=== PATIENT | female | born 1955 | race Caucasian/White ===

== ENCOUNTER → 2017-03-09 | Outpatient (CLI) | payer OTHER ==
[2017-03-09 15:41] LABS: CHLORIDE,CL 110 mmol/L (98-110); SODIUM,NA 144 mmol/L (136-146)
== END ==
LOC: MW.CHFP 14:42
PROVIDERS: ATTEND Physician Assistant
DX: R10.31 Right lower quadrant pain (principal); R10.32 Left lower quadrant pain
CPT/HCPCS: 36415; 80053; 85025; 85652; 86677

== ENCOUNTER 2017-04-02 09:37 | Day surgery (SDC) | payer OTHER ==
[~2017-04-02 09:37] MED LIST: Lactated Ringers 1,000 ML IV SCH; Sodium Chloride 0.9% 10 ML Syringe FLUSH PRN; Sodium Chloride 0.9% 2.5 ML Syringe FLUSH PRN
--- NOTE | 2017-04-02 10:12 | PCM.PREANE ---
Preanesthetic Assessment - Anesthesia/Transfusion/Family Hx Anesthesia History: Prior Anesthesia Without Reaction Family History of Anesthesia Reaction: No Transfusion History: No Prior Transfusion(s) Intubation History: Unknown - Review of Systems General: No Symptoms Pulmonary: No Symptoms Cardiovascular: No Symptoms Gastrointestinal: Abdominal pain Neurological: No Symptoms Other: Reports: None - Physical Assessment Height: 1.63 m Weight: 60.781 kg ASA Class: 3 Mental Status: Alert & Oriented x3 Airway Class: Mallampati = 2 Dentition: Reports: Normal Dentition Thyro-Mental Finger Breadths: 3 Mouth Opening Finger Breadths: 2 ROM/Head Extension: Limited/Partial Lungs: Normal respiratory effort, Crackles Cardiovascular: Regular Rate - Allergies Allergies/Adverse Reactions: Allergies Allergy/AdvReac Type Severity Reaction Status Date / Time No Known Allergies Allergy Verified 10/10/15 10:29 - Blood Blood Available: No - Anesthesia Plan Pre-Op Medication Ordered: None - Acknowledgements Anesthesia Type Planned: MAC Pt an Appropriate Candidate for the Planned Anesthesia: Yes Alternatives and Risks of Anesthesia Discussed w Pt/Guardian: Yes Pt/Guardian Understands and Agrees with Anesthesia Plan: Yes PreAnesthesia Questionnaire HEENT History: Reports: Other (See Below) Other HEENT History: wears glasses Respiratory History: Reports: Other (See Below) (lung nodule discovered 2 weeks ago) Genitourinary History: Reports: None Musculoskeletal History: Reports: Arthritis, Back Pain, Chronic, Fracture, Osteoporosis Other Musculoskeletal History: hx fx ankle and wrist - Past Surgical History Head Surgeries/Procedures: Reports: None GI Surgical History: Reports: Colonoscopy Female Surgical History: Reports: Hysterectomy Musculoskeletal Surgical History: Reports: Shoulder Surgery (rt. shoulder rotator cuff repair) - SUBSTANCE USE Smoking Status *Q: Current Every Day Smoker (1 ppd) Tobacco Use Within Last Twelve Months: Cigarettes Recreational Drug Use History: No - HOME MEDS Home Medications: Home Meds Aspirin [[place] Aspirin] 81 mg PO DAILY 03/30/17 [History] - CURRENT (IN HOUSE) MEDS Current Meds: Current Medications Lactated Ringer's (Ringers, Lactated) 1,000 mls @ 125 mls/hr IV ASDIRECTED POLLY Last Admin: 04/02/17 09:55 Dose: 125 mls/hr Sodium Chloride (Saline Flush) 10 ml FLUSH ASDIRECTED PRN PRN Reason: Keep Vein Open Sodium Chloride (Saline Flush) 2.5 ml FLUSH ASDIRECTED PRN PRN Reason: Keep Vein Open
[2017-04-02] MEDS ORDERED: Propofol 200 MG/20 ML SDV ONE (10:22)
[2017-04-02] MEDS ORDERED: Lidocaine 2% 5 ML SDV ONE (10:22)
[2017-04-02] MEDS ORDERED: Midazolam 1 MG/ML 2 ML SDV ONE (10:23)
[2017-04-02] MEDS ORDERED: fentaNYL 100 MCG/2 ML SDV ONE (10:23)
[2017-04-02] MEDS ORDERED: ePHEDrine 50 MG/ML SDV ONE (10:58)
--- NOTE | 2017-04-02 11:31 | PCM.OPNOTE ---
- General Post-Op/Procedure Note Date of Surgery/Procedure: 04/02/17 Operative Procedure(s): Diagnostic EGD and colonoscopy Findings: Normal EGD and colonoscopy Pre Op Diagnosis: Distal esophageal thickening, change in bowel habits Post-Op Diagnosis: Same Anesthesia Technique: MAC Primary Surgeon: Dayana Mansfield Condition: Good
--- NOTE | 2017-04-02 11:31 | PCM.POSTAN ---
POST ANESTHESIA ASSESSMENT - MENTAL STATUS Mental Status: alert, oriented - RESPIRATORY Respiratory Status: respiratory rate WNL, airway patent, O2 saturation stable - CARDIOVASCULAR CV Status: pulse rate WNL, blood pressure stable - GASTROINTESTINAL GI Status: no symptoms - POST OP HYDRATION Hydration Status: adequate & stable - OBSERVATIONS Free Text/Narrative:: no anesthesia problems
[2017-04-02 11:45] VITALS: BP 124/70
--- NOTE | 2017-04-03 03:45 | OR ---
SURGEON: MITCH TRACY MD DATE OF PROCEDURE: 04/02/2017 PROCEDURE PERFORMED: Diagnostic EGD and colonoscopy. PREOPERATIVE DIAGNOSIS: Change in bowel habits, distal esophagus thickening on imaging. POSTOPERATIVE DIAGNOSIS: Change in bowel habits, distal esophagus thickening on imaging. INSTRUMENT USED: Olympus endoscope and colonoscope. ANESTHESIA: MAC. EXTENT OF EXAM: To the second portion of the duodenum, to the cecum. PREPARATION: Good. LIMITATIONS: None. INDICATIONS FOR EXAMINATION: The patient is a 61-year-old female, who presents with vague abdominal pain and change in her bowel habits. Recent CT of the abdomen and pelvis showed thickening of the distal esophagus. Decision was made to perform a diagnostic EGD and colonoscopy. We discussed the procedure as well as the risks including bleeding, infection, damage to surrounding structures, including perforation. The patient verbalized understanding and wishes to proceed. PROCEDURE IN DETAIL: The patient was brought to the endoscopy suite and placed in the beach chair position. A time-out was completed verifying the patient's name, age, date of , allergies, and procedure to be performed. A bite block was placed in the patient's mouth and monitored anesthesia care was induced. Continuous oxygen was provided via nasal cannula throughout the procedure. After adequate sedation was achieved, a well lubricated endoscope was placed in the patient's mouth and advanced under direct visualization until the second portion of duodenum. This appeared normal and a photograph was taken. The scope was then brought backward. The duodenal bulb, as well as the stomach appeared normal. Photograph was taken of the pylorus and the esophageal hiatus. Those both appeared without pathology. The scope was then brought into the distal esophagus and a photograph taken of the GE junction, which appeared normal. Random biopsies were taken of the distal esophagus and sent to pathology given the CT findings. The remainder of the esophagus appeared normal and the scope was removed from the patient. The patient was then placed in the left lateral decubitus position and digital rectal exam was performed. This examination was within normal limits. A well lubricated colonoscope was inserted in the rectum and advanced under direct visualization to the level of the cecum. The cecum was identified by both visual and anatomic landmarks. A photograph was taken of the cecal cap. I was unable to retroflex the scope given significant looping of the scope more proximally. The scope was then fully withdrawn while examining the color, texture, anatomy, and integrity of the mucosa from the cecum to the anal canal. The findings were consistent with normal colonic mucosa. The scope was brought into the rectum and retroflexed to allow visualization of the anal canal opening. This appeared normal and a photograph taken. The scope was straightened out and removed from the patient. The cecum to anus time was 6 minutes. The patient was transferred to the recovery room in stable condition. ENDOSCOPIC DIAGNOSIS: Normal appearing upper GI and colonoscopy. RECOMMENDATIONS: Follow up in clinic in 2 weeks. GAGANDEEP LOOMIS /[id number]
== END 2017-04-02 11:51 | disposition home or self-care (01) ==
LOC: MW.SDS 09:37
PROVIDERS: ATTEND Surgery
PROC: 0DB38ZX Excision of Lower Esophagus, Via Natural or Artificial Opening Endoscopic, Diagnostic (ICD-10-PCS; principal; 2017-04-02)
PROC: 0DJD8ZZ Inspection of Lower Intestinal Tract, Via Natural or Artificial Opening Endoscopic (ICD-10-PCS; 2017-04-02)
DX: R19.4 Change in bowel habit (principal); J20.9 Acute bronchitis, unspecified; F17.210 Nicotine dependence, cigarettes, uncomplicated; M19.90 Unspecified osteoarthritis, unspecified site; G89.29 Other chronic pain; M54.9 Dorsalgia, unspecified; M81.0 Age-related osteoporosis without current pathological fracture; Z79.82 Long term (current) use of aspirin; Z90.710 Acquired absence of both cervix and uterus; Z98.890 Other specified postprocedural states
CPT/HCPCS: 43239; 45378; J2250; J3010; J7120; 00740; 88305; J2704

== ENCOUNTER 2021-01-11 10:08 | Emergency (ER) | payer OTHER ==
--- NOTE | 2021-01-11 10:23 | PCM.EKG ---
#1 Interpretation EKG Date: 01/11/21 Time: 10:10 Rhythm: NSR Rate (Beats/Min): 99 ST-T: Normal
[2021-01-11] MEDS ORDERED: Sodium Chloride 0.9% 2.5 ML Syringe FLUSH PRN (10:30)
[2021-01-11] MEDS ORDERED: Sodium Chloride 0.9% 1,000 ML IV ONE (10:30)
[2021-01-11] MEDS ORDERED: Aspirin 81 MG Tab.Chew PO ONE (10:30)
[2021-01-11] MEDS ORDERED: Sodium Chloride 0.9% 10 ML Syringe FLUSH PRN (10:30)
[2021-01-11] MEDS: Nitroglycerin 0.4 MG Tab.SL SL PRN ×3 (10:48→10:58)
[2021-01-11 10:59] LABS: BLOOD UREA NITROGEN,BUN 17 mg/dL (7.0-18.0); CARBON DIOXIDE,CO2 28.4 mmol/L (21.0-32.0); CHLORIDE,CL 102 mmol/L (98-107); GLUCOSE RANDOM 89 mg/dL (74-106); LIPASE 76 U/L (73-393); SODIUM,NA 138 mmol/L (136-145)
--- NOTE | 2021-01-11 11:14 | EDM.PDOC ---
ED HPI GENERAL MEDICAL PROBLEM - General Chief Complaint: Chest Pain Stated Complaint: CHEST PAIN Time Seen by Provider: 01/11/21 10:09 Source of Information: Reports: Patient History Limitations: Reports: No Limitations - History of Present Illness INITIAL COMMENTS - FREE TEXT/NARRATIVE: HISTORY AND PHYSICAL: History of present illness: Patient is a 65-year-old female who presents emergency room today with concern of sharp chest pain that is worse with deep inspiration and coughing since early this morning around 3-4 in the morning. Patient states that the chest pain has been constant since 3 or 4 in the morning but much worse with deep inspiration or coughing. Patient states she does have a history of COPD and does smoke 2 packs of cigarettes daily. Patient states that she does have a chronic cough and notices that her pain is worse with coughing and her coughing is slightly worse than baseline. Patient denies any other associative symptoms. Patient states she has not taken anything for her symptoms. Patient denies fever, chills, shortness of breath. Denies headache, neck stiff ness, change in vision, syncope, or near syncope. Denies nausea, vomiting, abdominal pain, diarrhea, constipation, or dysuria. Has not noted any blood in urine or stool. Patient has been eating and drinking appropriately. Review of systems: As per history of present illness and below otherwise all systems reviewed and negative. Past medical history: As per history of present illness and as reviewed below otherwise noncontributory. Surgical history: As per history of present illness and as reviewed below otherwise noncontributory. Social history: See social history for further information Family history: As per history of present illness and as reviewed below otherwise noncontributory. Physical exam: General: Patient is alert, oriented, and in no acute distress. Patient laying comfortably on exam table. Vitals stable and reviewed by me. Tearful on exam. HEENT: Atraumatic, normocephalic, pupils equal and reactive bilaterally, negative for conjunctival pallor or scleral icterus, mucous membranes moist, TMs normal bilaterally, throat clear, neck supple, nontender, trachea midline. No drooling or trismus noted. No meningeal signs. No hot potato voice noted. Lungs: Clear to auscultation, breath sounds equal bilaterally, chest nontender. Heart: S1S2, regular rate and rhythm without overt murmur Abdomen: Soft, nondistended, nontender. Negative for masses or hepatosplenomegaly. Negative for costovertebral tenderness. Pelvis: Stable nontender. Genitourinary: Deferred. Rectal: Deferred. Skin: Intact, warm, dry. No lesions or rashes noted. Extremities: Atraumatic, negative for cords or calf pain. Neurovascular unremarkable. Neuro: Awake, alert, oriented. Cranial nerves II through XII unremarkable. Cerebellum unremarkable. Motor and sensory unremarkable throughout. Exam nonfocal. Notes: Dr. Martin verbally involved in patient care. Upon arrival to the ED, patient is well-appearing laying comfortably on exam table. She is tearful on exam but is vitally stable and nontoxic-appearing. See Dr. Martin's dictation for specific EKG interpretation. Sinus rhythm, rate 99, no STEMI or acute changes. Just prior to giving nitro, patients chest pain has gone away. Nitro withheld. HEART Score 3/4: Low to moderate risk Patient does have pain again-nitro and morphine given with improvement/resolution of pain. Initial trop and repeat trop negative. Chest CT shows small pleural-based area of acute pneumonitis in the anterior lingula. Small area of bronchiolitis in the right lower lobe. There is a 4 mm ground glass nodule in the right lower lobe. All incidental findings of imaging today discussed with patient. Strict return precautions thoroughly discussed with patient. Discussed importance for follow-up with a primary care provider. Voices understanding and is agreeable to plan of care. Denies any further questions or concerns at this time. Diagnostics: EKG, CBC, CMP, UA, CXR, Trop, Ddimer, COVID, chest ct w cont Therapeutics: ASA, Nitro Prescription: Levofloxacin Impression: Acute pneumonitis Plan: 1. Take medication as prescribed. You can alternate ibuprofen and Tylenol as directed for pain and discomfort. 2. Follow-up with your primary care provider as discussed. Return to the ED as needed and as discussed. Definitive disposition and diagnosis as appropriate pending reevaluation and review of above. Chest Pain Score (Numeric/FACES): 10 - Related Data Allergies Allergy/AdvReac Type Severity Reaction Status Date / Time No Known Allergies Allergy Verified 01/11/21 10:25 Home Meds: Home Meds Anastrozole [Arimidex] 1 mg PO DAILY 01/11/21 [History] Levofloxacin 750 mg PO DAILY 5 Days #5 tablet 01/11/21 [Rx] Past Medical History HEENT History: Reports: Other (See Below) Other HEENT History: wears glasses Respiratory History: Reports: Other (See Below) (lung nodule discovered 2 weeks ago) Genitourinary History: Reports: None Musculoskeletal History: Reports: Arthritis, Back Pain, Chronic, Fracture, Osteoporosis Other Musculoskeletal History: hx fx ankle and wrist Oncologic (Cancer) History: Reports: Breast - Infectious Disease History Infectious Disease History: Reports: Novel Coronavirus - Past Surgical History Head Surgeries/Procedures: Reports: None GI Surgical History: Reports: Colonoscopy Female Surgical History: Reports: Hysterectomy Musculoskeletal Surgical History: Reports: Shoulder Surgery Social & Family History - Family History Family Medical History: No Pertinent Family History - Tobacco Use Tobacco Use Status *Q: Current Every Day Tobacco User Years of Tobacco use: 40 Packs/Tins Daily: 2 - Caffeine Use Caffeine Use: Reports: Coffee - Recreational Drug Use Recreational Drug Use: No ED ROS GENERAL - Review of Systems Review Of Systems: Comprehensive ROS is negative, except as noted in HPI. ED EXAM, GENERAL - Physical Exam Exam: See Below (see dictation) Course - Vital Signs Last Recorded V/S: Last Vital Signs Temp 99.1 F 01/11/21 10:20 Pulse 72 01/11/21 15:08 Resp 18 01/11/21 15:08 BP 141/75 H 01/11/21 15:08 Pulse Ox 93 L 01/11/21 15:08 - Orders/Labs/Meds Orders: Active Orders 24 hr Category Date Time Status Saline Lock Insert [OM.PC] Stat Oth 01/11/21 10:30 Ordered Labs: Laboratory Tests 01/11/21 01/11/21 01/11/21 Range/Units 10:15 10:15 10:15 WBC 9.21 (4.0-11.0) K/uL RBC 4.56 (4.30-5.90) M/uL Hgb 14.9 (12.0-16.0) g/dL Hct 45.9 (36.0-46.0) % MCV 100.7 H (80.0-98.0) fL MCH 32.7 H (27.0-32.0) pg MCHC 32.5 (31.0-37.0) g/dL RDW Std Deviation 47.3 (28.0-62.0) fl RDW Coeff of Eloisa 13 (11.0-15.0) % Plt Count 288 (150-400) K/uL MPV 10.00 (7.40-12.00) fL Neut % (Auto) 71.5 (48.0-80.0) % Lymph % (Auto) 16.9 (16.0-40.0) % [place] % (Auto) 10.2 (0.0-15.0) % Eos % (Auto) 1.2 (0.0-7.0) % Baso % (Auto) 0.2 (0.0-1.5) % Neut # (Auto) 6.6 H (1.4-5.7) K/uL Lymph # (Auto) 1.6 (0.6-2.4) K/uL [place] # (Auto) 0.9 H (0.0-0.8) K/uL Eos # (Auto) 0.1 (0.0-0.7) K/uL Baso # (Auto) 0.0 (0.0-0.1) K/uL Nucleated RBC % 0.0 /100WBC Nucleated RBCs # 0 K/uL D-Dimer, Quantitative 0.27 (0.0-0.50) mg/L FEU Sodium 138 (136-145) mmol/L Potassium 4.0 (3.5-5.1) mmol/L Chloride 102 (98-107) mmol/L Carbon Dioxide 28.4 (21.0-32.0) mmol/L BUN 17 (7.0-18.0) mg/dL Creatinine 0.8 (0.6-1.0) mg/dL Est Cr Clr Drug Dosing 57.99 mL/min Estimated GFR (MDRD) > 60.0 ml/min Glucose 89 (74-106) mg/dL Calcium 9.3 (8.5-10.1) mg/dL Total Bilirubin 0.5 (0.2-1.0) mg/dL AST 15 (15-37) IU/L ALT 23 (14-63) IU/L Alkaline Phosphatase 83 (46-116) U/L Troponin I < 0.050 (0.000-0.056) ng/mL Total Protein 7.9 (6.4-8.2) g/dL Albumin 3.9 (3.4-5.0) g/dL Globulin 4.0 (2.6-4.0) g/dL Albumin/Globulin Ratio 1.0 (0.9-1.6) Lipase 76 (73-393) U/L Urine Color Urine Appearance Urine pH (5.0-8.0) Ur Specific [place] (1.001-1.035) Urine Protein (NEGATIVE) mg/dL Urine Glucose (UA) (NEGATIVE) mg/dL Urine Ketones (NEGATIVE) mg/dL Urine Occult Blood (NEGATIVE) Urine Nitrite (NEGATIVE) Urine Bilirubin (NEGATIVE) Urine Urobilinogen (<2.0) EU/dL Ur Leukocyte Esterase (NEGATIVE) Urine RBC (0-2/HPF) Urine WBC (0-5/HPF) Ur Epithelial Cells (NONE-FEW) Urine Bacteria (NEGATIVE) Influenza Type A RNA (NEGATIVE) Influenza Type B RNA (NEGATIVE) SARS-CoV-2 RNA (MARIELLE) (NEGATIVE) 01/11/21 01/11/21 01/11/21 Range/Units 10:44 12:43 13:47 WBC (4.0-11.0) K/uL RBC (4.30-5.90) M/uL Hgb (12.0-16.0) g/dL Hct (36.0-46.0) % MCV (80.0-98.0) fL MCH (27.0-32.0) pg MCHC (31.0-37.0) g/dL RDW Std Deviation (28.0-62.0) fl RDW Coeff of [place] (11.0-15.0) % Plt Count (150-400) K/uL MPV (7.40-12.00) fL Neut % (Auto) (48.0-80.0) % Lymph % (Auto) (16.0-40.0) % [place] % (Auto) (0.0-15.0) % Eos % (Auto) (0.0-7.0) % Baso % (Auto) (0.0-1.5) % Neut # (Auto) (1.4-5.7) K/uL Lymph # (Auto) (0.6-2.4) K/uL [place] # (Auto) (0.0-0.8) K/uL Eos # (Auto) (0.0-0.7) K/uL Baso # (Auto) (0.0-0.1) K/uL Nucleated RBC % /100WBC Nucleated RBCs # K/uL D-Dimer, Quantitative (0.0-0.50) mg/L FEU Sodium (136-145) mmol/L Potassium (3.5-5.1) mmol/L Chloride (98-107) mmol/L Carbon Dioxide (21.0-32.0) mmol/L BUN (7.0-18.0) mg/dL Creatinine (0.6-1.0) mg/dL Est Cr Clr Drug Dosing mL/min Estimated GFR (MDRD) ml/min Glucose (74-106) mg/dL Calcium (8.5-10.1) mg/dL Total Bilirubin (0.2-1.0) mg/dL AST (15-37) IU/L ALT (14-63) IU/L Alkaline Phosphatase (46-116) U/L Troponin I < 0.050 (0.000-0.056) ng/mL Total Protein (6.4-8.2) g/dL Albumin (3.4-5.0) g/dL Globulin (2.6-4.0) g/dL Albumin/Globulin Ratio (0.9-1.6) Lipase (73-393) U/L Urine Color YELLOW Urine Appearance CLEAR Urine pH 5.5 (5.0-8.0) Ur Specific [place] >= 1.030 (1.001-1.035) Urine Protein NEGATIVE (NEGATIVE) mg/dL Urine Glucose (UA) NEGATIVE (NEGATIVE) mg/dL Urine Ketones TRACE H (NEGATIVE) mg/dL Urine Occult Blood TRACE-INTACT H (NEGATIVE) Urine Nitrite NEGATIVE (NEGATIVE) Urine Bilirubin NEGATIVE (NEGATIVE) Urine Urobilinogen 0.2 (<2.0) EU/dL Ur Leukocyte Esterase NEGATIVE (NEGATIVE) Urine RBC 0-2 (0-2/HPF) Urine WBC 0-3 (0-5/HPF) Ur Epithelial Cells FEW (NONE-FEW) Urine Bacteria FEW (NEGATIVE) Influenza Type A RNA NEGATIVE (NEGATIVE) Influenza Type B RNA NEGATIVE (NEGATIVE) SARS-CoV-2 RNA (MARIELLE) NEGATIVE (NEGATIVE) Meds: Medications Discontinued Medications Generic Name Dose Route Start Last Admin Trade Name Freq PRN Reason Stop Dose Admin Aspirin 324 mg 0326/21 10:30 01/11/21 10:35 Aspirin 81 Mg Tab.Chew PO 01/11/21 10:31 324 mg ONETIME ONE Administration Sodium Chloride 1,000 mls @ 999 mls/hr 01/11/21 10:30 01/11/21 10:35 Normal Saline IV 01/11/21 11:30 999 mls/hr BOLUS ONE Administration Iopamidol 75 ml 01/11/21 12:39 01/11/21 12:40 Iopamidol 755 Mg/Ml 500 Ml Multipack Bottle IVPUSH 01/11/21 12:40 75 ml ONETIME ONE Administration Morphine Sulfate 2 mg 01/11/21 11:40 01/11/21 11:56 Morphine 2 Mg/Ml Syringe IVPUSH 01/11/21 11:41 2 mg ONETIME ONE Administration Nitroglycerin 0.4 mg 01/11/21 10:30 01/11/21 10:58 Nitroglycerin 0.4 Mg Tab.Sl SL 0.4 mg Q5M PRN Administration Chest Pain Sodium Chloride 10 ml 01/11/21 10:30 01/11/21 10:36 Sodium Chloride 0.9% 10 Ml Syringe FLUSH 10 ml ASDIRECTED PRN Administration Keep Vein Open Sodium Chloride 2.5 ml 01/11/21 10:30 01/11/21 10:36 Sodium Chloride 0.9% 2.5 Ml Syringe FLUSH 2.5 ml ASDIRECTED PRN Administration Keep Vein Open Departure - Departure Time of Disposition: 14:54 Disposition: Home, Self-Care 01 Clinical Impression: Acute pneumonitis - Discharge Information Prescriptions: Levofloxacin 750 mg PO DAILY 5 Days #5 tablet Instructions: Pneumonitis Referrals: PCP,None [Primary Care Provider] - Forms: ED Department Discharge Additional Instructions: The following information is given to patients seen in the emergency department who are being discharged to home. This information is to outline your options for follow-up care. We provide all patients seen in our emergency department with a follow-up referral. The need for follow-up, as well as the timing and circumstances, are variable d epending upon the specifics of your emergency department visit. If you don't have a primary care physician on staff, we will provide you with a referral. We always advise you to contact your personal physician following an emergency department visit to inform them of the circumstance of the visit and for follow-up with them and/or the need for any referrals to a consulting specialist. The emergency department will also refer you to a specialist when appropriate. This referral assures that you have the opportunity for follow-up care with a specialist. All of these measure are taken in an effort to provide you with optimal care, which includes your follow-up. Under all circumstances we always encourage you to contact your private physician who remains a resource for coordinating your care. When calling for follow-up care, please make the office aware that this follow-up is from your recent emergency room visit. If for any reason you are refused follow-up, please contact the [facility] Emergency Department at and asked to speak to the emergency department charge nurse. [facility] [address] [place] [id number] [place] [address] 1. Take medication as prescribed. You can alternate ibuprofen and Tylenol as directed for pain and discomfort. 2. Follow-up with your primary care provider as discussed. Return to the ED as needed and as discussed. Sepsis Event Note (ED) - Evaluation Sepsis Screening Result: No Definite Risk - Focused Exam Vital Signs: Vital Signs Temp Pulse Resp BP BP Pulse Ox 01/11/21 15:08 72 18 141/75 H 93 L 01/11/21 12:47 82 140/64 95 01/11/21 10:58 136/73 01/11/21 10:53 129/75 01/11/21 10:48 149/43 H 01/11/21 10:20 99.1 F 96 22 H 155/78 H 98 - My Orders Last 24 Hours: My Active Orders 01/11/21 10:30 Saline Lock Insert [OM.PC] Stat - Assessment/Plan Last 24 Hours: My Active Orders 01/11/21 10:30 Saline Lock Insert [OM.PC] Stat
--- NOTE | 2021-01-11 11:31 | CR ---
INDICATION: Chest pain. COMPARISON: Two-view chest July 22, 2016. TECHNIQUE: Portable AP chest. FINDINGS: Normal size cardiac silhouette. Clear lung myers with no evidence of acute pneumonic infiltrates or CHF. No pneumothorax or pleural effusion. No interval change. IMPRESSION: No acute pathology. Dictated by Maude Page MD @ Jan 11 2021 11:28AM Signed by Dr. Maude Page @ Jan 11 2021 11:29AM
[2021-01-11] MEDS ORDERED: Morphine 2 MG/ML SYRINGE IVPUSH ONE (11:40)
[2021-01-11] MEDS ORDERED: Iopamidol 755 MG/ML 500 ML Multipack Bottle IVPUSH ONE (12:39)
[2021-01-11 13:27] LABS: CORONAVIRUS COVID-19 NAA NEGATIVE (NEGATIVE); INFLUENZA A NAA NEGATIVE (NEGATIVE); INFLUENZA B NAA NEGATIVE (NEGATIVE)
--- NOTE | 2021-01-11 14:17 | CT ---
INDICATION: Left-sided chest pain. TECHNIQUE: CT chest with 75 cc Isovue 370 IV contrast. COMPARISON: June 30, 2017. FINDINGS: Lungs and pleura: Small patchy pleural based infiltrate is in the anterior lingula best visualized on axial series 202, image 69. Cluster of tiny nodules in the posterior right lower lobe consistent with bronchiolitis. Small 4 mm ground-glass nodule in the anterior right lower lobe series 202, image 74. No other significant findings. No pleural effusions, pleural thickening, or pneumothorax. Heart and vasculature: Heart size is normal. Thoracic aorta and pulmonary artery are normal in caliber. Lymph nodes/mediastinum: A few minimally enlarged mediastinal lymph nodes. Thyroid gland is normal. Chest wall: No masses. Upper abdomen: Normal. Bones: Unremarkable for age. IMPRESSION: 1. Small pleural-based area of acute pneumonitis in the anterior lingula. This is not a classical presentation of COVID pneumonitis, however this entity is possible. 2. Very small area of bronchiolitis in the right lower lobe. Also small indeterminate 4 mm ground-glass nodule right lower lobe. Please note that all CT scans at this facility use dose modulation, iterative reconstruction, and/or weight-based dosing when appropriate to reduce radiation dose to as low as reasonably achievable. Dictated by Martínez Fung MD @ Jan 11 2021 1:49PM Signed by Dr. Martínez Fung @ Jan 11 2021 2:16PM
[2021-01-11 15:08] VITALS: BP 141/75; PULSE 72
== END 2021-01-11 15:05 | disposition home or self-care (01) ==
LOC: MW.ED 10:08
DX: J18.9 Pneumonia, unspecified organism (principal); Z20.822 Contact with and (suspected) exposure to COVID-19; Z72.0 Tobacco use; Z86.16 Personal history of COVID-19
CPT/HCPCS: 0240U; 36415; 71045; 71260; 80053; 81001; 83690; 84484; 85025; 85379; 93005; 96374; 99285; A9270; J2270; J7030; Q9967; 93010; 99284